=== PATIENT | male | born 1975 | race Caucasian/White ===

== ENCOUNTER → 2019-06-29 12:55 | Outpatient (CLI) | payer OTHER, SELFPAY ==
--- NOTE | 2019-06-29 13:21 | RAD_ITS ---
STUDY: X-RAY - ORBITS REASON FOR EXAM: Male, 43 years old. Clearance for MRI TECHNIQUE: 2 view(s) of the orbits were obtained. COMPARISON: None. FINDINGS: Normal bilateral orbits without a metallic orbital foreign body. Normal visualized facial bones. Normal paranasal sinuses. The soft tissue structures are unremarkable. RAD/Orbits for Foreign Body IMPRESSION: No demonstrated metallic orbital foreign body. The patient is cleared for an MRI examination. Electronically Signed: Lawrence Ross, at 13:41 EDT Tel , Service support ,
--- NOTE | 2019-06-29 13:45 | MRI_ITS ---
STUDY: MRI LUMBAR SPINE WITHOUT CONTRAST REASON FOR EXAM: Male, 43 years old. TECHNIQUE: Standardized fat and water weighted pulse sequences were obtained in the sagittal and axial planes. COMPARISON: None FINDINGS: lumbar spine is intact and aligned. Marrow, paraspinous soft tissues and SI joints are unremarkable. There is retroperitoneal lipomatosis. This is a benign metabolically active condition associated with accelerated atherosclerosis and hyperglycemic state. This does not require further imaging. There is degenerative erosion in the superior L5 chronic type II reactive marrow conversion. Conus medullaris terminates at L1. Cauda equina is restricted at L5-S1. L5-S1 has a large central disc extrusion with inferior migration of the disc material along the right ventral epidural space. There is moderate thecal sac compression. There is right greater than left lateral recess stenosis with compressive effect on the right traversing S1 nerve root. There is moderate bilateral foraminal stenosis. Remainder of the levels have patent canal, foramina and lateral recesses. MRI/Spine Lumbar (Routine) IMPRESSION: 1. L5-S1 large disc extrusion with moderate thecal sac and bilateral lateral recess compression. Neurosurgical referral is advised. Electronically Signed: Analilia Beckwith, at 17:56 EDT Tel , Service support ,
== END ==
PROVIDERS: Family Provider Family Medicine; PCP Family Medicine; Referring Provider Family Medicine; Visit Provider Family Medicine
DX: M54.41 Lumbago with sciatica, right side (principal)
CPT/HCPCS: 70030; 72148